=== PATIENT | female | born 1975 | race Caucasian/White ===

== ENCOUNTER 2020-11-28 15:00 | Emergency (ER) | payer OTHER ==
[2020-11-28] MEDS ORDERED: TORADOL 10 MG T10 MG PO (16:57)
== END 2020-11-28 17:26 | disposition home or self-care (01) ==
LOC: ER1 15:00
DX: S89.91XA Unspecified injury of right lower leg, initial encounter (principal); Z91.040 Latex allergy status; Z86.16 Personal history of COVID-19; X50.9XXA Other and unspecified overexertion or strenuous movements or postures, initial encounter
CPT/HCPCS: 73564; 99283

== ENCOUNTER → 2021-02-07 | Outpatient (CLI) | payer OTHER ==
[~2021-02-07] MED LIST: TORADOL 10 MG T10 MG PO
== END ==
LOC: HEART 5 12-20 11:00
DX: R07.9 Chest pain, unspecified (principal)

== ENCOUNTER → 2021-03-25 | Outpatient (CLI) | payer OTHER | LOC: HEART 5 13:15 | DX: R07.9 Chest pain, unspecified (principal); R00.2 Palpitations; I08.1 Rheumatic disorders of both mitral and tricuspid valves | CPT/HCPCS: 93306 ==